=== PATIENT | female | born 1985 | race American Indian/Alaskan Native ===

== ENCOUNTER 2018-02-07 20:45 | Emergency (ER) | payer SELFPAY ==
[2018-02-07 21:04] VITALS: BP 160/100
== END 2018-02-08 04:11 | disposition left against medical advice (07) ==
LOC: ED 20:45
DX: H57.10 Ocular pain, unspecified eye (principal); Z53.21 Procedure and treatment not carried out due to patient leaving prior to being seen by health care provider